=== PATIENT | female | born 1990 | race Caucasian/White ===

== ENCOUNTER → 2020-10-29 | Outpatient (CLI) | payer BC ==
--- NOTE | 2020-10-29 12:19 | Diagnostic Imaging Report ---
INDICATION: Routine care. TECHNIQUE: Multiple real-time grayscale images were obtained over the gravid uterus. COMPARISON: None FINDINGS: There is a single live fetus in a cephalic presentation. heart rate was recorded at 155 bpm. Placenta is posterior. Amniotic fluid index is 13.6 cm. Cervical length is 3.4 cm. kidneys, bladder and stomach are unremarkable. brain is unremarkable. There is a four-chamber heart. There is a three-vessel cord with normal insertion. spine is unremarkable. Biometrical measurements are as follows: Biparietal 4.74 cm, age 20 weeks 3 days. Head circumference 18.29 cm, age 20 weeks 5 days. Abdominal circumference 15.25 cm, age 20 weeks 4 days. Femur length 3.57 cm, age 21 weeks 3 days. Sonographic estimate age: 20 weeks 6 days. Sonographic estimated date of delivery: 03/12/2021. Estimated Weight: 379 gm (+/- 55 gm). LMP percentile: 74%. heart rate: 155 beats per minute. number: 1 of 1. IMPRESSION: Single live IUP 20 weeks 6 days gestational age with estimated date of confinement sonographically 03/12/2021. No complicating features are identified. Dictated by: Dictated on workstation # [id number]
== END ==
LOC: RAD 10:00
PROVIDERS: ATTEND Nurse Practitioner Women's Health
DX: Z34.02 Encounter for supervision of normal first pregnancy, second trimester (principal); Z3A.20 20 weeks gestation of pregnancy
CPT/HCPCS: 76805

== ENCOUNTER 2021-03-01 20:11 | Inpatient (IN) | payer BC ==
[~2021-03-01] VITALS: Ht 167.7 cm; Wt 78.2 kg
[2021-03-01 20:30] VITALS: BP 126/70
[2021-03-01] MEDS ORDERED: LIDOCAINE/EPI 2% 1:200,00 (XYLOCAINE) 20 ML VIAL INJ PRN (21:45)
[2021-03-01] MEDS ORDERED: D5 LR IV SOLUTION 1,000 ML IV ONE (21:45)
[2021-03-01 21:48] LABS: BILIRUBIN,URINE NEGATIVE (NEGATIVE); CLARITY,URINE CLEAR; COLOR,URINE YELLOW; GLUCOSE, URINE (UA) NEGATIVE (NEGATIVE); KETONES,URINE TRACE (NEGATIVE); LEUKOCYTE ESTERASE ,URINE NEGATIVE (NEGATIVE); NITRITE,URINE NEGATIVE (NEGATIVE); PROTEIN,URINE NEGATIVE (NEGATIVE)
[2021-03-01 21:49] LABS: BASOPHILS % (AUTO) 0 % (0-10); EOSINOPHILS % (AUTO) 0 % (0-10); HEMATOCRIT 34 % (35-52); HEMOGLOBIN 11.9 g/dL (11.5-16.0); LYMPHOCYTES # (AUTO) 2.8 10^3/uL (1.0-4.0); LYMPHOCYTES % (AUTO) 26 % (12-44); MEAN CORPUSCULAR HEMOGLOBIN 33 pg (25-34); MEAN CORPUSCULAR HGB CONC 36 g/dL (32-36); MEAN CORPUSCULAR VOLUME 92 fL (80-99); MEAN PLATELET VOLUME 10.7 fL (9.0-12.2); MONOCYTES # (AUTO) 0.7 10^3/uL (0.0-1.0); MONOCYTES % (AUTO) 6 % (0-12); NEUTROPHILS % (AUTO) 66 % (42-75); PLATELET COUNT 253 10^3/uL (130-400); WHITE BLOOD COUNT 10.7 10^3/uL (4.3-11.0)
[2021-03-01] MEDS: D5 LR IV SOLUTION 1,000 ML IV SCH (21:50)
[2021-03-01 21:56] LABS: BACTERIA,URINE TRACE /HPF; WBC,URINE 0-2 /HPF
[2021-03-01 22:00] VITALS: BP 125/74
[2021-03-01] MEDS: CATHETER FLUSH 10 ML SYR IV SCH (22:01)
[2021-03-01 22:14] VITALS: BP 126/70
[2021-03-02] VITALS (60 sets, daily range): BP systolic 89–136; BP diastolic 55–79
[2021-03-02] MEDS ORDERED: OXYTOCIN PRE-MIX DRIP 500 ML IV ONE (04:25)
[2021-03-02] MEDS ORDERED: OXYTOCIN PRE-MIX DRIP 500 ML IV SCH ×2 (04:30→17:30)
[2021-03-02] MEDS: D5 LR IV SOLUTION 1,000 ML IV SCH (04:47)
[2021-03-02] MEDS ORDERED: NALOXONE 0.4 MG/ML 1 ML (NARCAN) VIAL IV PRN (17:30)
[2021-03-02] MEDS ORDERED: HYDROcodone/APAP 5 MG/325 MG (LORTAB) TAB PO PRN (17:30)
[2021-03-02] MEDS ORDERED: TETANUS,DIPTH,PERTUSS P/F (BOOSTRIX) 0.5 ML VIAL IM ONE (17:30)
[2021-03-02] MEDS ORDERED: MEASLES,MUMPS,RUBELLA 1 EA INJ SQ ONE (17:30)
[2021-03-02] MEDS ORDERED: DIBUCAINE 1% OINTMENT 30 GM TUBE TOP PRN (17:30)
[2021-03-02] MEDS ORDERED: BENZOCAINE/MENTHOL (DERMOPLAST) 56 ML CAN TP PRN (17:30)
--- NOTE | 2021-03-02 17:33 | History & Physical-OB ---
OB - Chief Complaint & HPI Date/Time Date of Admission: Date of Admission: Mar 01, 2021 at 21:04 Date seen by a Provider: Mar 02, 2021 Time Seen by a Provider: 08:00 Chief Complaint/History OB-Reason for Admission/Chief: Rupture of Membranes Hx : 1 Hx Para: 0 Expected Date of Delivery: Mar 16, 2021 Gestational Age in Weeks: 37 Gestational Age in Days: 6 Admission Nurse Assessment Rev: Yes Allergies and Home Medications Allergies Coded Allergies: No Known Drug Allergies (Unverified , 03/01/21) Patient Home Medication List Home Medication List Reviewed: Yes No Active Prescriptions or Reported Meds OB - History Hx of Present Care: Yes Ultrasounds: Normal mid trimester US Obstetrical Complications: None Medical Complications: None Patient Past Medical History n/a OB - Admission Exam Physical Exam Vitals: Vital Signs 03/01/21 03/02/21 03/02/21 22:14 08:05 14:05 Temp 36.5 Pulse 76 Resp 20 B/P (MAP) 121/70 (87) Pulse Ox 98 O2 Delivery Room Air HEENT: NCAT Heart: Rhythm Normal Lungs: Clear Abdomen: Gravid Extremities: Normal Reflexes: Normal Cervical Dilatation: 1cm Effacement: 75% Station: -1 Membranes: Ruptured Amniotic Fluid: Clear Heart Rate: 130's Accelerations: Accelerations Present Decelerations: No Decelerations Short Term Variability: Present Shelter Variability: Average (6-25) Contractions on Admission: 6-10 Minutes Apart Intensity: Mild Labs Laboratory Tests Test 03/01/21 21:20 Range/Units White Blood Count 10.7 4.3-11.0 10^3/uL Red Blood Count 3.64 L 3.80-5.11 10^6/uL Hemoglobin 11.9 11.5-16.0 g/dL Hematocrit 34 L 35-52 % Mean Corpuscular Volume 92 80-99 fL Mean Corpuscular Hemoglobin 33 25-34 pg Mean Corpuscular Hemoglobin Concent 36 32-36 g/dL Red Cell Distribution Width 12.5 10.0-14.5 % Platelet Count 253 130-400 10^3/uL Mean Platelet Volume 10.7 9.0-12.2 fL Immature Granulocyte % (Auto) 1 % Neutrophils (%) (Auto) 66 42-75 % Lymphocytes (%) (Auto) 26 12-44 % Monocytes (%) (Auto) 6 0-12 % Eosinophils (%) (Auto) 0 0-10 % Basophils (%) (Auto) 0 0-10 % Neutrophils # (Auto) 7.0 1.8-7.8 10^3/uL Lymphocytes # (Auto) 2.8 1.0-4.0 10^3/uL Monocytes # (Auto) 0.7 0.0-1.0 10^3/uL Eosinophils # (Auto) 0.0 0.0-0.3 10^3/uL Basophils # (Auto) 0.0 0.0-0.1 10^3/uL Immature Granulocyte # (Auto) 0.2 H 0.0-0.1 10^3/uL Urine Color YELLOW Urine Clarity CLEAR Urine pH 6.0 5-9 Urine Specific [place] >=1.030 1.016-1.022 Urine Protein NEGATIVE NEGATIVE Urine Glucose (UA) NEGATIVE NEGATIVE Urine Ketones TRACE H NEGATIVE Urine Nitrite NEGATIVE NEGATIVE Urine Bilirubin NEGATIVE NEGATIVE Urine Urobilinogen 0.2 < = 1.0 MG/DL Urine Leukocyte Esterase NEGATIVE NEGATIVE Urine RBC (Auto) 1+ H NEGATIVE Urine RBC 2-5 H /HPF Urine WBC 0-2 /HPF Urine Squamous Epithelial Cells 2-5 /HPF Urine Crystals NONE /LPF Urine Bacteria TRACE /HPF Urine Casts NONE /LPF Urine Mucus SMALL H /LPF Urine Culture Indicated NO OB - Assessment/Plan/Diagnosis Assessment Assessment: rupture of membranes Admission Dx 30 yo @ 37 weeks SROM GBS neg Admission Status: Inpatient Order (span 2 midnights) Reason for Inpatient Admission: Active labor Plan Other Plan Will augment with pitocin if no adequate contraction pattern. MICHELLE LYONS DO Mar 02, 2021 17:33
--- NOTE | 2021-03-02 17:37 | OB Labor & Delivery Record ---
L&D History Date of Service Date of Service: Mar 02, 2021 History Expected Date of Delivery: Mar 16, 2021 Gestational Age in Weeks: 37 Hx : 1 Hx Para: 0 Complications Events: Routine care Operative Indications (Cesarea: N/A-Vaginal Delivery Intrapartal Events: None L&D Stage1 Stage One Onset of Labor - Date: Mar 02, 2021 Monitors and Tracing Monitor Mode: External Heart Rate: 135 Station: -2 Half-Way Variability: Average (6-10) Short Term Variability: Present Presentation: Vertex Vital Signs VS - Last 72 Hours, by Label 03/01/21 03/01/21 03/01/21 03/02/21 20:30 22:00 22:14 00:00 Temp 36.3 36.3 36.4 Pulse 72 77 72 65 Resp 18 18 18 18 B/P (MAP) 126/70 (88) 125/74 (91) 119/75 (90) Pulse Ox 98 98 O2 Delivery Room Air Room Air Room Air 03/02/21 03/02/21 03/02/21 03/02/21 04:00 04:50 05:05 05:20 Temp 36.5 Pulse 83 95 93 76 Resp 18 20 20 20 B/P (MAP) 109/63 (78) 107/74 (85) 109/67 (81) 109/69 (82) O2 Delivery Room Air Room Air Room Air Room Air 03/02/21 03/02/21 03/02/21 03/02/21 05:35 05:50 06:05 06:20 Pulse 93 75 76 90 Resp 20 20 20 20 B/P (MAP) 118/74 (89) 112/71 (85) 118/75 (89) 110/76 (87) O2 Delivery Room Air Room Air Room Air Room Air 03/02/21 03/02/21 03/02/21 03/02/21 06:40 06:50 07:05 07:20 Temp 36.5 Pulse 78 83 87 83 Resp 20 20 20 20 B/P (MAP) 111/75 (87) 108/72 (84) 106/70 (82) 95/62 (73) O2 Delivery Room Air Room Air Room Air Room Air 03/02/21 03/02/21 03/02/21 03/02/21 07:35 07:50 08:05 08:20 Temp 36.5 Pulse 84 75 69 73 Resp 20 20 20 20 B/P (MAP) 111/73 (86) 116/69 (85) 108/58 (75) 109/61 (77) O2 Delivery Room Air Room Air Room Air Room Air 03/02/21 03/02/21 03/02/21 03/02/21 08:35 08:50 09:05 09:20 Pulse 72 83 79 77 Resp 20 20 20 20 B/P (MAP) 102/61 (75) 115/61 (79) 108/56 (73) 110/66 (81) O2 Delivery Room Air Room Air Room Air Room Air 03/02/21 03/02/21 03/02/21 03/02/21 09:35 09:50 10:05 10:20 Pulse 70 80 86 72 Resp 20 20 20 20 B/P (MAP) 109/67 (81) 116/68 (84) 111/68 (82) 114/67 (83) O2 Delivery Room Air Room Air Room Air Room Air 03/02/21 03/02/21 03/02/21 03/02/21 10:35 10:50 11:05 11:20 Pulse 75 126 75 79 Resp 20 20 20 20 B/P (MAP) 108/60 (76) 107/61 (76) 113/74 (87) 101/65 (77) O2 Delivery Room Air Room Air Room Air Room Air 03/02/21 03/02/21 03/02/21 03/02/21 11:35 11:50 12:05 12:20 Pulse 79 77 81 73 Resp 20 20 20 20 B/P (MAP) 108/74 (85) 114/61 (78) 111/63 (79) 118/66 (83) O2 Delivery Room Air Room Air Room Air Room Air 03/02/21 03/02/21 03/02/21 03/02/21 12:35 12:50 13:05 13:20 Pulse 70 77 74 74 Resp 20 20 20 20 B/P (MAP) 111/65 (80) 123/71 (88) 123/72 (89) 123/72 (89) O2 Delivery Room Air Room Air Room Air Room Air 03/02/21 03/02/21 03/02/21 13:35 13:50 14:05 Pulse 76 83 76 Resp 20 20 20 B/P (MAP) 115/73 (87) 118/58 (78) 121/70 (87) O2 Delivery Room Air Room Air Room Air Rupture of Membranes Spontaneous Ruture of Membrane: Yes Amniotic Membrane Rupture Time: 1929 Amniotic Membrane Fluid Desc.: Clear Vaginal Bleeding Description: Normal Show Progress/Notes Patient admitted with SROM at 37 weeks, allowed to labor without adequate contraction pattern noted after 5 hours, pitocin augmentation was started. She progressed to complete and +1 station with max dose of 16 mu reached. L&D Stage2 Stage Two Stage II Date: Mar 02, 2021 Monitors and Tracing Monitor Mode: External Heart Rate: 135 Monitor Accelerations: Uniform Monitor Decelerations: Variable Half-Way Variability: Average (6-10) Short Term Variability: Present Position: Right Occiput Anterior Presentation: Vertex Cord Descript/Complications Cord Vessel Description: 3 Vessels Complications nuchal cord x 2 Delivery Type Infant Delivery Method: Spontaneous Vaginal Anterior Shoulder: Left Episiotomy/Perineal Laceration Episiotomy Description: Right Mediolateral Degree (describe repair) RML repaired in usual fashion using 3-0 and 2-0 vicryl Condition of Delivery 1 minute Comment: 8 5 minute Comment: 9 Notes Live male infant weight 7lbs 10 oz Condition of Infant Condition of Infant: Living Exam: No Observed Abnormalities Resuscitation Resuscitation: N/A - Spontaneous Resp L&D Stage3 Stage Three Stage III Date: Mar 02, 2021 Pictocin Pitocin Administration mu/min: 16 Pitocin ml/hr: 16 Pitocin Administration Comment: 30 mu wide open after delivery of placenta Placenta Delivery Placenta Delivery: Spontaneous Delivery Summary Summary Estimated blood loss (mL): 400 Attending at delivery: Michelle Lyons DO Condition of Delivery Examined: Cervix Examined, Uterus Explored Post Hemorrhage: No Condition of Mother stable Condition of (s) stable MICHELLE LYONS DO Mar 02, 2021 17:37
[2021-03-02] MEDS: IBUPROFEN 600 MG (MOTRIN) TAB PO SCH (17:43)
[2021-03-02] MEDS ORDERED: WITCH HAZEL(TUCKS) 40 EA JAR ONE (21:04)
[2021-03-03] MEDS: IBUPROFEN 600 MG (MOTRIN) TAB PO SCH ×5 (00:32→23:13)
[2021-03-03] MEDS: WITCH HAZEL(TUCKS) 40 EA JAR TOP PRN (00:32)
[2021-03-03] MEDS: DOCUSATE SODIUM 100 MG (COLACE) CAP PO SCH ×3 (00:32→20:38)
[2021-03-03 01:14] VITALS: BP 100/50
[2021-03-03 05:04] VITALS: BP 97/61
[2021-03-03 06:13] LABS: BASOPHILS % (AUTO) 0 % (0-10); EOSINOPHILS % (AUTO) 0 % (0-10); HEMATOCRIT 26 % (35-52); HEMOGLOBIN 9.1 g/dL (11.5-16.0); LYMPHOCYTES # (AUTO) 3.6 10^3/uL (1.0-4.0); LYMPHOCYTES % (AUTO) 24 % (12-44); MEAN CORPUSCULAR HEMOGLOBIN 33 pg (25-34); MEAN CORPUSCULAR HGB CONC 35 g/dL (32-36); MEAN CORPUSCULAR VOLUME 94 fL (80-99); MEAN PLATELET VOLUME 10.9 fL (9.0-12.2); MONOCYTES # (AUTO) 0.9 10^3/uL (0.0-1.0); MONOCYTES % (AUTO) 6 % (0-12); NEUTROPHILS % (AUTO) 68 % (42-75); PLATELET COUNT 212 10^3/uL (130-400); WHITE BLOOD COUNT 14.7 10^3/uL (4.3-11.0)
--- NOTE | 2021-03-03 07:17 | Discharge Inst-Women's Service ---
Discharge Inst-Women's Serv Depart Medication/Instructions New, Converted or Re-Newed RX: Transmitted to Pharmacy Final Diagnosis PPD 2 NVD Problems Reviewed?: Yes Consults/Follow Up Additional Follow Up: Yes Orders/Referrals Dr. Lyons in 6 weeks Activity Activity: Activity as Tolerated Driving Instructions: No Driving for 1 Week NO SMOKING: NO SMOKING Nothing Inside Vagina: No Douching, No [place], No Tampons Diet Discharge Diet: No Restrictions Symptoms to Report to : Bleeding Excessive, Pain Increased, Fever Over 101 Degrees F, Vaginal Bleeding Increase, Questions/Concerns For Any Problems or Questions: Contact Your Physician MICHELLE LYONS DO Mar 03, 2021 07:17
[2021-03-03] MEDS ORDERED: BENZ78AE5 TP (07:19)
[2021-03-03] MEDS ORDERED: DOCU100C37 PO (07:19)
[2021-03-03] MEDS ORDERED: ACHD5005 PO (07:19)
[2021-03-03] MEDS ORDERED: DIBU30OI TOP (07:19)
[2021-03-03] MEDS ORDERED: IBUP-844 PO (07:19)
[2021-03-03] MEDS: CATHETER FLUSH 10 ML SYR IV SCH ×5 (09:00→23:46)
[2021-03-03] MEDS: PRENATAL VITAMIN 1 EA TAB PO SCH (09:26)
[2021-03-03 11:00] VITALS: BP 97/54
[2021-03-03] MEDS: D5 LR IV SOLUTION 1,000 ML IV SCH ×4 (12:37→23:46)
[2021-03-03 17:00] VITALS: BP 115/63
--- NOTE | 2021-03-03 19:08 | Postpartum Progress Note ---
Note Note Day # 1 Subjective: Patient is without complaints. Ambulating, voiding. Tolerating a regular diet without nausea or vomiting. Normal lochia. Pain is well controlled with oral pain medications. Breast feeding. Objective: Physical Exam: General - Alert and oriented, no apparent distress Abdomen - Soft, appropriately tender to palpation, non-distended, fundus firm at umbilicus Extremities - no edema, negative Jonathan's bilaterally Assessment: Post- day # 1, status post vaginal delivery. Recovering well, hemodynamically stable Acute blood loss anemia Plan: Routine care. Encourage breast feeding. Encourage ambulation. Ferrous sulfate supplementation. Plan for discharge tomorrow Vitals - Labs Vital Signs - I&O Vital Signs Date Time Temp Pulse Resp B/P (MAP) Pulse Ox O2 Delivery O2 Flow Rate FiO2 03/03/21 17:00 36.4 86 18 115/63 (80) 99 Room Air 03/03/21 11:00 36.4 110 18 97/54 (68) 97 Room Air 03/03/21 09:00 Room Air 03/03/21 05:04 36.8 95 20 97/61 (73) 98 Room Air 03/03/21 01:14 36.8 116 20 100/50 (67) 96 Room Air 03/02/21 20:17 37.3 124 20 97/58 (71) 97 Room Air I & O 03/03/21 07:00 Intake Total 1000 ml Balance 1000 ml Labs Laboratory Tests 03/03/21 05:52: White Blood Count 14.7H, Red Blood Count 2.80L, Hemoglobin 9.1#L, Hematocrit 26L , Mean Corpuscular Volume 94, Mean Corpuscular Hemoglobin 33, Mean Corpuscular Hemoglobin Concent 35, Red Cell Distribution Width 12.5, Platelet Count 212, Mean Platelet Volume 10.9, Immature Granulocyte % (Auto) 1, Neutrophils (%) (Au to) 68, Lymphocytes (%) (Auto) 24, Monocytes (%) (Auto) 6, Eosinophils (%) (Auto) 0, Basophils (%) (Auto) 0, Neutrophils # (Auto) 10.0H, Lymphocytes # (Auto) 3.6, Monocytes # (Auto) 0.9, Eosinophils # (Auto) 0.0, Basophils # (Auto) 0.0, Immature Granulocyte # (Auto) 0.2H GEORGES ELIAS APRN 11, 2021 19:08
[2021-03-03 20:00] VITALS: BP 112/54
[2021-03-04 03:45] VITALS: BP 117/64
[2021-03-04] MEDS: D5 LR IV SOLUTION 1,000 ML IV SCH (04:04)
[2021-03-04] MEDS: CATHETER FLUSH 10 ML SYR IV SCH ×2 (04:05)
[2021-03-04] MEDS: PRENATAL VITAMIN 1 EA TAB PO SCH (05:37)
[2021-03-04] MEDS: IBUPROFEN 600 MG (MOTRIN) TAB PO SCH ×2 (05:38→11:46)
[2021-03-04] MEDS: WITCH HAZEL(TUCKS) 40 EA JAR TOP PRN (05:44)
[2021-03-04 08:00] VITALS: BP 111/61
[2021-03-04] MEDS: DOCUSATE SODIUM 100 MG (COLACE) CAP PO SCH (08:41)
--- NOTE | 2021-03-04 09:24 | Postpartum Progress Note ---
Note Note Day # 2 Subjective: Patient is without complaints. Ambulating, voiding. Tolerating a regular diet without nausea or vomiting. Normal lochia. Pain is well controlled with oral pain medications. Breast feeding. Objective: Physical Exam: General - Alert and oriented, no apparent distress Abdomen - Soft, appropriately tender to palpation, non-distended, fundus firm at umbilicus Extremities - no edema, negative Jonathan's bilaterally Assessment: Post- day #2, status post vaginal delivery. Recovering well, hemodynamically stable Acute blood loss anemia Plan: Routine care. Encourage breast feeding. Encourage ambulation. Ferrous sulfate supplementation. Plan for discharge today Vitals - Labs Vital Signs - I&O Vital Signs Date Time Temp Pulse Resp B/P (MAP) Pulse Ox O2 Delivery O2 Flow Rate FiO2 03/04/21 08:00 36.3 93 18 111/61 (78) 98 Room Air 03/04/21 03:45 18 117/64 (81) 03/03/21 23:41 36.4 16 03/03/21 21:00 Room Air 03/03/21 20:00 36.2 84 16 112/54 (73) 100 Room Air 03/03/21 17:00 36.4 86 18 115/63 (80) 99 Room Air 03/03/21 11:00 36.4 110 18 97/54 (68) 97 Room Air I & O 03/04/21 06:59 Intake Total 4520 ml Balance 4520 ml GEORGES ELIAS APRN Mar 04, 2021 09:24
== END 2021-03-04 14:15 | disposition home or self-care (01) | DRG 806 ==
LOC: WSo 20:11 → LDRP 20:11 → WSo 21:10 → LDRP 03-02 18:52
PROVIDERS: ADMIT Obstetrics & Gynecology; ATTEND Obstetrics & Gynecology
PROC: 10E0XZZ Delivery of Products of Conception, External Approach (ICD-10-PCS; principal; 2021-03-02)
PROC: 0W8NXZZ Division of Female Perineum, External Approach (ICD-10-PCS; 2021-03-02)
DX: O69.81X0 Labor and delivery complicated by cord around neck, without compression, not applicable or unspecified (principal); D62 Acute posthemorrhagic anemia; Z37.0 Single live birth; Z3A.37 37 weeks gestation of pregnancy; O90.81 Anemia of the puerperium
CPT/HCPCS: 36415; 81000; 85025; 86850; 86900; 86901; 99212

== ENCOUNTER → 2023-02-26 | Outpatient (CLI) | payer OTHER ==
[~2023-02-26] MED LIST: ACHD5005 PO; BENZ78AE5 TP; DIBU30OI TOP; DOCU100C37 PO; IBUP-844 PO
--- NOTE | 2023-02-26 16:45 | Diagnostic Imaging Report ---
INDICATION: Anatomy scan. TECHNIQUE: Multiple real-time grayscale images were obtained over the gravid uterus. COMPARISON: None. FINDINGS: There is a single live fetus in a breech presentation. heart rate was recorded at 158 BPM. Placenta is posterior. No previa is detected. Amniotic fluid index is 14.3 cm. Cervical length is 3.6 cm. survey demonstrates kidneys, bladder and stomach to be unremarkable. brain is unremarkable. There is a four-chamber heart. There is a three-vessel cord with normal insertion. spine is unremarkable. Biometrical measurements are as follows: Biparietal 4.73 cm, age 20 weeks 3 days. Head circumference 18.18 cm, age 20 weeks 5 days. Abdominal circumference 15.73 cm, age 21 weeks 0 days. Femur length 3.36 cm, age 20 weeks 4 days. Sonographic estimate age: 20 weeks 5 days. Sonographic estimated date of delivery: 07/11/2023. Estimated Weight: 371 gm (+/- 54 gm). LMP percentile: 83%. heart rate: 158 beats per minute. number: 1 of 1. IMPRESSION: Single live IUP of 20 weeks 5 days gestational age. Estimated date of confinement sonographically is 07/11/2023. Dictated by: Dictated on workstation # [id number]
== END ==
LOC: RAD 13:00
PROVIDERS: ATTEND Nurse Practitioner Women's Health
DX: Z34.02 Encounter for supervision of normal first pregnancy, second trimester (principal); Z3A.20 20 weeks gestation of pregnancy
CPT/HCPCS: 76805